=== PATIENT | female | born 1995 | race Caucasian/White ===

== ENCOUNTER 2017-12-10 08:04 | Emergency (ER) | payer BC ==
[2017-12-10 08:19] VITALS: BP 127/73
[2017-12-10] MEDS ORDERED: Tetracaine 0.5% OPTH.SOL 15ML* BTL BOTH EYES ONE (08:26)
[2017-12-10] MEDS ORDERED: Tetracaine 0.5% OPTH.SOL 4 ML* 1 DROP BTL ONE (08:27)
[2017-12-10] MEDS ORDERED: Fluorescein Sod TOPICAL 0.6* 0.6 MG TEST OPHTHALMIC ONE ×3 (08:27→08:53)
--- NOTE | 2017-12-10 08:36 | UC ---
Eye Complaint HPI - HPI Summary HPI Summary: ACCOMPANIED BY MOTHER, PATIENT C/O BLURRED VISION AND HEADACHES X2 DAYS WOKE UP AT 3AM AND FELT LIKE THERE WAS SOMETHING IN EYE BUT EYE HURTS SO MUCH SHE CANNOT OPEN IT NO INJURY TO EYE, FEELS BETTER WITH PRESSURE ON IT AND WHEN SHE IS NOT BLINKING. SHE STATES SHE HAS NOT USED HER CONTACT LENSES FOR MONTHS AND USUALLY WEARS HER GLASSES. ALSO STATES THAT FOR THE PAST FEW DAYS SHE HAS HAD 'FLOATERS ' IN BOTH EYES INTERMITTENTLY THAT APPEAR AND DISSAPPEAR AND HAS BEEN RUBBING HER EYES VERY OFTEN. SHE HAS HISTORY OF MIGRAINE HEADACHES AND SHE USED TO HAVE THESE SYMPTOMS WITH THE HEADACHE ALTHOUGH SHE DENIES AURA. DENIES NAUSEA OR VOMITING. HER LAST MIGRAINE WAS YEARS AGO. SHE ALSO STATES SHE IS ON THE CONTROL PILL SINCE AGE 16 DUE TO DYSMENORRHEA AND NOW SHE IS SEXUALLY ACTIVE. - History of Current Complaint Chief Complaint: UCEye Stated Complaint: RIGHT EYE COMPLAINT Time Seen by Provider: 12/10/17 08:13 Hx Obtained From: Patient Hx Last Menstrual Period: DOESNT GET ONE DUE TO BC ?: No Onset/Duration: Sudden Onset, Lasting Hours Timing: Constant Pain Intensity: 6 Location of Injury: Conjunctiva Character: Foreign Body Sensation Aggravating Factor(s): Light Alleviating Factor(s): Darkness Associated Signs And Symptoms: Positive: Photophobia, Vision Impairment Right - Risk Factors Penetrating Injury Risk Factor: Negative Globe Rupture Risk Factors: Negative Acute Glaucoma Risk Factors: Negative Optic Artery Occlusion Risk Factors: Negative - Allergies/Home Medications Allergies/Adverse Reactions: Allergies Allergy/AdvReac Type Severity Reaction Status Date / Time MS Cefprozil [From Cefzil] Allergy Severe Hives Verified 06/06/14 14:05 MS Penicillins [Penicillins] Allergy Severe Hives Verified 06/06/14 14:05 Home Medications: Home Medications Levocetirizine Dihydrochloride [Xyzal] 5 mg PO DAILY 12/10/17 [History Confirmed 12/10/17] PMH/Surg Hx/FS Hx/Imm Hx Previously Healthy: Yes Neurological History: Migraine - Surgical History Surgical History: Yes Surgery Procedure, Year, and Place: WISDOM TEETH - Family History Known Family History: Positive: Hypertension - Social History Alcohol Use: Occasionally Substance Use Type: None Smoking Status (MU): Never Smoked Tobacco - Immunization History Vaccination Up to Date: Yes Review of Systems Constitutional: Negative Eyes: Blurred Vision, Eye Redness, Photophobia Neurological: Headache, Other - VISUAL DISTURBANCE All Other Systems Reviewed And Are Negative: Yes Physical Exam Triage Information Reviewed: Yes Appearance: Well-Appearing, No Pain Distress, Well-Nourished Vital Signs: Initial Vital Signs Temp 97.5 F 12/10/17 08:11 Pulse 79 12/10/17 08:11 Resp 16 12/10/17 08:11 BP 127/73 12/10/17 08:11 Pulse Ox 99 12/10/17 08:11 Vital Signs Reviewed: Yes Eyes: Positive: Conjunctiva Inflamed - CONJUNCTIVAL INJECTION ON RIGHT EYE WITH PROFUSE TEARING. FLUORESCEIN UPTAKE POSITIVE, LINEAR RIGHT CORNEAL ABRASION BTWN 2-3 OCLOCK . DOE, EOM WNL. NO FOREIGN BODIES UPON EYELID INVERSION, Other : ENT: Positive: Hearing grossly normal Eye Complaint Course/Dx - Course Course Of Treatment: PATIENT HAS RIGHT CORNEAL ABRASION, WITH HISTORY OF INTERMITTENT FLOATERS FOR THE PAST WEEK ON BOTH EYES FOR WHICH SHE HAS BEEN RUBBING HER EYES CONTINUOUSLY. START POLYTRIM DROPS PRESCRIBED AND F/U WITH HER ROD AND TUBE STRAIGHTENER TOMORROW. PATIENT HAS HISTORY OF MIGRAINE HEADACHES AND WILL MAKE APPOINTMENT WITH NEUROLOGIST FOR FOLLOW UP ON RECURRENCE. - Differential Dx/Diagnosis Provider Diagnoses: RIGHT CORNEAL ABRASION. VISUAL DISTURBANCE Discharge - Sign-Out/Discharge Documenting (check all that apply): Patient Departure All imaging exams completed and their final reports reviewed: No Studies - Discharge Plan Condition: Stable Disposition: HOME Patient Education Materials: Corneal Abrasion (ED), Polymyxin B/Trimethoprim ( Into the eye) Referrals: Radha Frazier MD [Primary Care Provider] - - Billing Disposition and Condition Condition: STABLE Disposition: Home
== END 2017-12-10 09:05 | disposition home or self-care (01) ==
LOC: UCCORT 08:04
DX: S05.01XA Injury of conjunctiva and corneal abrasion without foreign body, right eye, initial encounter (principal); X58.XXXA Exposure to other specified factors, initial encounter; Y93.89 Activity, other specified; Y92.9 Unspecified place or not applicable; H53.9 Unspecified visual disturbance; Z88.1 Allergy status to other antibiotic agents; Z88.0 Allergy status to penicillin
CPT/HCPCS: 99212; A9270-GY; G0463

== ENCOUNTER 2018-10-15 16:43 | Emergency (ER) | payer BC ==
[2018-10-15 17:07] VITALS: BP 126/86
--- NOTE | 2018-10-15 17:08 | UC ---
Skin Complaint HPI - HPI Summary HPI Summary: 23-year-old female who found what she thinks was a tick bite on 10/15/2018. Since then she has developed body aches, fever and chills and the rash has gotten bigger on her mid lower back. She does not think she is however she does not get periods because of her control. - History of Current Complaint Chief Complaint: UCGeneralIllness Time Seen by Provider: 10/15/18 17:05 Stated Complaint: BODY ACHES,HEADACHE,POSS TICK BITE Hx Obtained From: Patient Hx Last Menstrual Period: HAS CONTINUOUS BCP, DOES NOT HAVE PERIODS ?: No Onset/Duration: Gradual Onset Skin Exposure Onset/Duration: Hours Ago Timing: Constant Onset Severity: Mild Current Severity: Moderate Pain Intensity: 8 Location: Generalized - Patient has generalized body aches, fever and chills. She does have a rash in the mid lower back which has enlarged over the past 24 hours. Character: Redness Aggravating Factor(s): Nothing Alleviating Factor(s): Nothing Associated Signs & Symptoms: Positive: Fever, Chills, Rash Related History: Insect Bite/Sting - Possibility of a tick bite. - Allergy/Home Medications Allergies/Adverse Reactions: Allergies Allergy/AdvReac Type Severity Reaction Status Date / Time cefprozil [From Cefzil] Allergy Hives Verified 10/15/18 16:53 Penicillins Allergy Hives Verified 10/15/18 16:53 Sulfa (Sulfonamide Allergy Hives Verified 10/15/18 16:53 Antibiotics) Home Medications: Home Medications Ashwagandha/Ginkgo 10/15/18 [History] Cbd Oil 10/15/18 [History] Ibuprofen TAB* [Advil TAB*] 600 mg PO PRN 10/15/18 [History] l-Norgest/E.estradiol-E.estrad [Ashlyna 0.15-0.03 &0.01 mg] 1 tab PO DAILY 10/15 [History Confirmed 10/15/18] PMH/Surg Hx/FS Hx/Imm Hx Previously Healthy: Yes - Surgical History Surgical History: Yes Surgery Procedure, Year, and Place: WISDOM TEETH - Family History Known Family History: Positive: Hypertension - Social History Alcohol Use: Occasionally Substance Use Type: None Smoking Status (MU): Never Smoked Tobacco - Immunization History Vaccination Up to Date: Yes Review of Systems All Other Systems Reviewed And Are Negative: Yes Constitutional: Positive: Fever, Chills Skin: Positive: Rash - Rash noted to lower mid back which she thinks could possibly be a tick bite. Musculoskeletal: Positive: Myalgia Is Patient Immunocompromised?: No Physical Exam Triage Information Reviewed: Yes Appearance: Well-Appearing, No Pain Distress, Well-Nourished Vital Signs: Initial Vital Signs Temp 98.5 F 10/15/18 17:01 Pulse 96 10/15/18 17:01 Resp 20 10/15/18 17:01 BP 126/86 10/15/18 17:01 Pulse Ox 99 10/15/18 17:01 Vital Signs Reviewed: Yes Eyes: Positive: Conjunctiva Clear ENT: Positive: Hearing grossly normal, Pharynx normal, TMs normal, Uvula midline Neck: Positive: Supple, Nontender, No Lymphadenopathy Respiratory: Positive: Lungs clear, Normal breath sounds, No respiratory distress, No accessory muscle use Cardiovascular: Positive: RRR, No Murmur, Pulses Normal, Brisk Capillary Refill Abdomen Description: Positive: Nontender, No Organomegaly, Soft. Negative: CVA Tenderness (R), CVA Tenderness (L) Bowel Sounds: Positive: Present Musculoskeletal: Positive: Strength Intact, ROM Intact, No Edema Neurological: Positive: Alert, Muscle Tone Normal Psychological Exam: Normal Skin: Positive: Rashes - Patient has a circular rash to her mid lower back with what appears to be some sort of a bug bite in the middle portion however no tick is present at this point time. There is no active drainage. Course/Dx - Course Course Of Treatment: Patient is comfortable here. A urine test was negative. I am going to treat her for Lyme disease starting with 2 weeks of doxycycline 100 mg by mouth twice a day and then to follow-up with her primary care provider before the 2 weeks is finished for the possibility of extending that treatment for another week. If she has any worsening of symptoms she is to go to the emergency room for further treatment. - Diagnoses Provider Diagnosis: Erythema migrans (Lyme disease) Discharge - Sign-Out/Discharge Documenting (check all that apply): Patient Departure All imaging exams completed and their final reports reviewed: No Studies - Discharge Plan Condition: Fair Disposition: HOME Prescriptions: DOXYcycline CAP(*) [DOXYcycline 100MG CAP(*)] 100 mg PO BID 14 Days #28 cap Patient Education Materials: Lyme Disease (ED) Forms: *Work Release Referrals: Radha Frazier MD [Primary Care Provider] - Additional Instructions: No dairy products, antacids or multivitamins including your magnesium capsule 2 hours before you take the doxycycline and 2 hours after you take the doxycycline however you want to definitely take it with food. Definite follow- up with your primary care provider in 2 weeks for recheck and to determine whether or not your primary care provider wants to continue one more week of doxycycline. - Billing Disposition and Condition Condition: FAIR Disposition: Home
== END 2018-10-15 17:36 | disposition home or self-care (01) ==
LOC: UCCORT 16:43
DX: A26.0 Cutaneous erysipeloid (principal); Z88.0 Allergy status to penicillin; Z88.1 Allergy status to other antibiotic agents; Z88.2 Allergy status to sulfonamides
CPT/HCPCS: 84702; 99212; G0463